=== PATIENT | female | born 1995 | race Caucasian/White ===

== ENCOUNTER → 2023-08-27 | Outpatient (CLI) | payer OTHER ==
[2023-08-27 09:31] LABS: CALCIUM 9.7 mg/dL (8.4-10.2); CHOLESTEROL RISK RATIO 3.5; CREATININE, serum 0.79 mg/dL (0.57-1.11); POTASSIUM 4.7 mmol/L (3.5-4.5)
== END ==
LOC: COL.LAB 08:45
PROVIDERS: Family Medicine
DX: E11.9 Type 2 diabetes mellitus without complications (principal)